=== PATIENT | male | born 1995 | race Caucasian/White ===

== ENCOUNTER 2018-07-07 12:06 | Emergency (ER) | payer SELFPAY ==
--- NOTE | 2018-07-07 13:19 | UC ---
Upper Extremity HPI - HPI Summary HPI Summary: pt has a surgery on his L shoulder 11/2017. on 07/05/18 he reinjured his L shoulder playing rugby. he reports feeling it dislocate and pop back in. he comes in today for ongoing pain in the shoulder. no numbness or weakness to the arm. - History of Current Complaint Chief Complaint: UCUpperExtremity Stated Complaint: LEFT SHOULDER INJURY (HAS SCREWS) Time Seen by Provider: 07/07/18 13:12 Hx Obtained From: Patient Onset/Duration: Sudden Onset Pain Intensity: 6 Aggravating Factor(s): Movement Alleviating Factor(s): Rest Associated Signs And Symptoms: Negative: Swelling, Weakness, Numbness/Tingling - Allergies/Home Medications Allergies/Adverse Reactions: Allergies Allergy/AdvReac Type Severity Reaction Status Date / Time No Known Allergies Allergy Verified 07/07/18 12:35 Home Medications: Home Medications Acetaminophen [Pain Reliever] 1,000 mg PO Q6HR PRN 07/07/18 [History Confirmed 07/07/18] PMH/Surg Hx/FS Hx/Imm Hx - Additional Past Medical History Additional PMH: L shoulder injury-surgery - Surgical History Surgical History: Yes Surgery Procedure, Year, and Place: Left Shoulder surgery-11/2017. Right arm surgery - Family History Known Family History: Positive: None - Social History Occupation: Student Alcohol Use: Occasionally Substance Use Type: Marijuana Substance Use Comment - Amount & Last Used: occassionally Smoking Status (MU): Never Smoked Tobacco - Immunization History Vaccination Up to Date: Yes Review of Systems Constitutional: Negative Skin: Negative Eyes: Negative ENT: Negative Respiratory: Negative Cardiovascular: Negative Gastrointestinal: Negative Genitourinary: Negative Motor: Negative Neurovascular: Negative Musculoskeletal: Other: - L shoulder pain Neurological: Negative Psychological: Negative Is Patient Immunocompromised?: No All Other Systems Reviewed And Are Negative: Yes Physical Exam Triage Information Reviewed: Yes Appearance: Well-Appearing Vital Signs: Initial Vital Signs Temp 97.2 F 07/07/18 12:39 Pulse 60 07/07/18 12:39 Resp 14 07/07/18 12:39 BP 119/75 07/07/18 12:39 Pulse Ox 100 07/07/18 12:39 Vital Signs Reviewed: Yes Eyes: Positive: Conjunctiva Clear ENT: Positive: Normal ENT inspection Neck: Positive: Supple, Nontender, No Lymphadenopathy, Other: - c-spine non tender. Respiratory: Positive: Lungs clear, Normal breath sounds Cardiovascular: Positive: RRR, No Murmur Abdomen Description: Positive: Nontender, No Organomegaly, Soft Bowel Sounds: Positive: Present Musculoskeletal: Positive: Other: - LUE: slight sulcus anterior shoulder compared to R. passive flexion/extension intact but any active or passive internal or external rotation or abduction causes him pain. Rest of arm is atraumatic with full s/v/m function. Neurological: Positive: Alert Psychological: Positive: Age Appropriate Behavior Skin Exam: Normal Diagnostics - Laboratory Diagnostic Studies Completed/Ordered: IMPRESSION: Inferior subluxation relative to the glenoid of the humeral head. No fracture. is noted. Upper Extremity Course/Dx - Course Course Of Treatment: I spoke to Dr Berger, [facility] [place] orthopedic environmental services aide. He looked at the xray. We agree to sling and pt will f/u with him in the office. - Differential Dx/Diagnosis Provider Diagnoses: Acute L shoulder pain. Probable dislocation -spontaneously reduced. Discharge - Sign-Out/Discharge Documenting (check all that apply): Patient Departure All imaging exams completed and their final reports reviewed: Yes - Discharge Plan Condition: Stable Disposition: HOME Patient Education Materials: Shoulder Dislocation (ED) Referrals: Nicholas Berger MD [Medical Doctor] - As Soon As Possible Additional Instructions: KEEP ARM IN SLING AND NO SPORTS UNTIL CLEARED - Billing Disposition and Condition Condition: STABLE Disposition: Home
--- NOTE | 2018-07-07 14:12 | RAD ---
An indication: Left shoulder dislocation and reduction. 4 views of left shoulder demonstrates inferior subluxation of the humeral head. There has been prior repair of the glenoid labrum. There is inferior subluxation of the humerus relative to the glenoid. IMPRESSION: Inferior subluxation relative to the glenoid of the humeral head. No fracture is noted.
== END 2018-07-07 14:45 | disposition home or self-care (01) ==
LOC: UCCORT 12:06
DX: M25.512 Pain in left shoulder (principal); Z98.890 Other specified postprocedural states
CPT/HCPCS: 99202; G0463